=== PATIENT | male | born 1985 | race Caucasian/White ===

== ENCOUNTER 2018-05-17 17:46 | Emergency (ER) | payer MEDICAID ==
[~2018-05-17] VITALS: Ht 180.3 cm; Wt 127.7 kg
[2018-05-17 17:51] VITALS: BP 113/70
[2018-05-17] MEDS ORDERED: IBUPROFEN 200 MG TABLET ONE (18:11)
[2018-05-17] MEDS ORDERED: IBUPROFEN 200 MG TABLET PO ONE (18:30)
== END 2018-05-17 18:43 | disposition home or self-care (01) ==
LOC: ED 18:29
DX: R05 Cough (principal); R07.89 Other chest pain; F17.200 Nicotine dependence, unspecified, uncomplicated; Z88.0 Allergy status to penicillin
CPT/HCPCS: 71046; 93005; 99284